=== PATIENT | female | born 1995 | race Caucasian/White ===

== ENCOUNTER 2017-08-20 09:19 | Emergency (ER) | payer OTHER, SELFPAY ==
[2017-08-20] MEDS: METOCLOPRAMIDE INJ 10MG/2ML VIAL (J2765) IV (11:15)
[2017-08-20] MEDS: NS 1,000 ML IV (11:15)
[2017-08-20 11:33] LABS: BASO % 0.1 % (0.0-1.0); HEMATOCRIT 46.9 % (36.0-47.0); HEMOGLOBIN 15.9 g/dl (12.0-15.5); IMMATURE GRANULOCYTE % 0.5 % (0-3.0); LYMPH # 1.4 10^3/uL (1.5-6.5); LYMPH % 8.2 % (24.0-44.0); MEAN CORPUSCULAR HGB CONC 33.9 g/dl (32.0-36.5); MEAN CORPUSCULAR VOLUME 85.6 fl (80.0-96.0); MONO # 0.4 10^3/uL (0.0-0.8); MONO % 2.1 % (0.0-5.0); NEUTROPHILS % 89.1 % (36.0-66.0); PLATELET COUNT, AUTOMATED 299 10^3/uL (150-450); RED BLOOD COUNT 5.48 10^6/uL (4.00-5.40); RED CELL DISTRIBUTION WIDTH 12.3 % (11.5-14.5); WHITE BLOOD COUNT 16.9 10^3/uL (4.0-10.0)
[2017-08-20 12:05] LABS: AMORPHOUS SEDIMENT RFX SMALL (NEGATIVE); KETONE, URINE AUTO RFX 2+ mg/dL (NEGATIVE); LEUKOCYTE ESTERASE UR AUTO RFX NEGATIVE (NEGATIVE); MUCUS, URINE RFX MODERATE (NEGATIVE); NITRITE, URINE AUTO RFX NEGATIVE (NEGATIVE); RBC, URINE AUTO RFX 2 /HPF (0-3); SPECIFIC GRAVITY UR AUTO RFX 1.035 (1.002-1.035); SQUAM EPITHELIAL CELL UR AURFX 15 /HPF (0-6); WBC, URINE AUTO RFX 2 /HPF (0-3)
[2017-08-20 12:11] LABS: ALBUMIN 4.3 GM/DL (3.2-5.2); ALBUMIN/GLOBULIN RATIO 0.93 (1.00-1.93); ALKALINE PHOSPHATASE 65 U/L (45-117); ALT/SGPT 48 U/L (12-78); ANION GAP 11 MEQ/L (8-16); AST/SGOT 17 U/L (7-37); BILIRUBIN,DIRECT 0.1 MG/DL (0.0-0.2); BILIRUBIN,TOTAL 0.5 MG/DL (0.2-1.0); BLOOD UREA NITROGEN 11 MG/DL (7-18); CALCIUM LEVEL 9.6 MG/DL (8.5-10.1); CARBON DIOXIDE LEVEL 27 MEQ/L (21-32); CHLORIDE LEVEL 101 MEQ/L (98-107); CREATININE FOR GFR 0.83 MG/DL (0.55-1.30); GLOMERULAR FILTRATION RATE > 60.0 (>60); GLUCOSE, FASTING 112 MG/DL (70-100); LIPASE 71 U/L (73-393); POTASSIUM SERUM 3.7 MEQ/L (3.5-5.1); SODIUM LEVEL 139 MEQ/L (136-145); TOTAL PROTEIN 8.9 GM/DL (6.4-8.2)
== END 2017-08-20 13:17 | disposition home or self-care (01) ==
LOC: M ED 09:19
DX: O21.0 Mild hyperemesis gravidarum (principal); O99.280 Endocrine, nutritional and metabolic diseases complicating pregnancy, unspecified trimester; E86.0 Dehydration; Z3A.01 Less than 8 weeks gestation of pregnancy; Z88.0 Allergy status to penicillin
CPT/HCPCS: J2765

== ENCOUNTER 2017-08-23 18:03 | Observation (INO) | payer SELFPAY, BC, OTHER ==
[2017-08-23] MEDS: ONDANSETRON 4MG/2ML VIAL (J2405) IV (19:15)
[2017-08-23] MEDS: NS 1,000 ML IV ×2 (19:15→20:45)
[2017-08-23 19:21] LABS: BASO % 0.2 % (0.0-1.0); EOS % 0.1 % (0.0-3.0); HEMATOCRIT 46.2 % (36.0-47.0); HEMOGLOBIN 16.3 g/dl (12.0-15.5); IMMATURE GRANULOCYTE % 0.4 % (0-3.0); LYMPH # 2.6 10^3/uL (1.5-6.5); LYMPH % 16.2 % (24.0-44.0); MEAN CORPUSCULAR HEMOGLOBIN 29.6 pg (27.0-33.0); MEAN CORPUSCULAR HGB CONC 35.3 g/dl (32.0-36.5); MONO # 0.9 10^3/uL (0.0-0.8); MONO % 5.6 % (0.0-5.0); NEUTROPHILS # 12.2 10^3/uL (1.8-7.7); NEUTROPHILS % 77.5 % (36.0-66.0); PLATELET COUNT, AUTOMATED 319 10^3/uL (150-450); RED CELL DISTRIBUTION WIDTH 12.2 % (11.5-14.5); WHITE BLOOD COUNT 15.8 10^3/uL (4.0-10.0)
[2017-08-23 19:30] LABS: KETONE, URINE AUTO RFX 2+ mg/dL (NEGATIVE); LEUKOCYTE ESTERASE UR AUTO RFX NEGATIVE (NEGATIVE); MUCUS, URINE RFX MODERATE (NEGATIVE); NITRITE, URINE AUTO RFX NEGATIVE (NEGATIVE); RBC, URINE AUTO RFX 4 /HPF (0-3); SQUAM EPITHELIAL CELL UR AURFX 12 /HPF (0-6); WBC, URINE AUTO RFX 3 /HPF (0-3)
[2017-08-23 19:51] LABS: ALKALINE PHOSPHATASE 67 U/L (45-117); ALT/SGPT 262 U/L (12-78); ANION GAP 8 MEQ/L (8-16); AST/SGOT 127 U/L (7-37); BILIRUBIN,DIRECT 0.7 MG/DL (0.0-0.2); BILIRUBIN,TOTAL 1.5 MG/DL (0.2-1.0); BLOOD UREA NITROGEN 9 MG/DL (7-18); CALCIUM LEVEL 9.5 MG/DL (8.5-10.1); CARBON DIOXIDE LEVEL 35 MEQ/L (21-32); CHLORIDE LEVEL 93 MEQ/L (98-107); GLOMERULAR FILTRATION RATE > 60.0 (>60); GLUCOSE, FASTING 103 MG/DL (70-100); LIPASE 74 U/L (73-393); POTASSIUM SERUM 3.5 MEQ/L (3.5-5.1); SODIUM LEVEL 136 MEQ/L (136-145)
[2017-08-24] MEDS: KCL 20MEQ IN D5/0.45NS 1000ML 1,000 ML IV ×4 (00:24→23:19)
[2017-08-24] MEDS: ONDANSETRON 4MG/2ML VIAL (J2405) IV ×3 (00:24→13:59)
[2017-08-24] MEDS: PROMETHAZINE INJ 25 MG/ML VIAL (J2550) IV ×2 (04:43→11:33)
[2017-08-24 06:41] LABS: HEMATOCRIT 41.2 % (36.0-47.0); HEMOGLOBIN 14.4 g/dl (12.0-15.5); MEAN CORPUSCULAR HEMOGLOBIN 29.3 pg (27.0-33.0); MEAN CORPUSCULAR VOLUME 83.7 fl (80.0-96.0); PLATELET COUNT, AUTOMATED 248 10^3/uL (150-450); RED BLOOD COUNT 4.92 10^6/uL (4.00-5.40); RED CELL DISTRIBUTION WIDTH 12.2 % (11.5-14.5); WHITE BLOOD COUNT 11.8 10^3/uL (4.0-10.0)
[2017-08-24 07:00] LABS: ALBUMIN 3.3 GM/DL (3.2-5.2); ALBUMIN/GLOBULIN RATIO 1.06 (1.00-1.93); ALKALINE PHOSPHATASE 53 U/L (45-117); ALT/SGPT 250 U/L (12-78); ANION GAP 6 MEQ/L (8-16); AST/SGOT 107 U/L (7-37); BILIRUBIN,TOTAL 1.1 MG/DL (0.2-1.0); BLOOD UREA NITROGEN 6 MG/DL (7-18); CALCIUM LEVEL 8.3 MG/DL (8.5-10.1); CARBON DIOXIDE LEVEL 32 MEQ/L (21-32); CHLORIDE LEVEL 100 MEQ/L (98-107); CREATININE FOR GFR 0.56 MG/DL (0.55-1.30); GLOMERULAR FILTRATION RATE > 60.0 (>60); GLUCOSE, FASTING 97 MG/DL (70-100); POTASSIUM SERUM 3.1 MEQ/L (3.5-5.1); SODIUM LEVEL 138 MEQ/L (136-145); TOTAL PROTEIN 6.4 GM/DL (6.4-8.2)
[2017-08-24] MEDS: PRENATAL VITAMINS CHEWABLE TABLET PO (10:42)
[2017-08-24] MEDS: ONDANSETRON 4 MG ORAL DISINTEGRATING TAB (Q0162 PER 1MG) PO (19:58)
[2017-08-24] MEDS: PROMETHAZINE 25 MG SUPP PR (23:19)
[2017-08-25] MEDS: KCL 20MEQ IN D5/0.45NS 1000ML 1,000 ML IV (06:57)
[2017-08-25] MEDS: ONDANSETRON 4 MG ORAL DISINTEGRATING TAB (Q0162 PER 1MG) PO (07:01)
[2017-08-25] MEDS: PRENATAL VITAMINS CHEWABLE TABLET PO (08:47)
== END 2017-08-25 11:30 | disposition home or self-care (01) ==
LOC: M ED 18:03 → M ED INP 22:00 → M PED 23:40
DX: O21.1 Hyperemesis gravidarum with metabolic disturbance (principal); O99.611 Diseases of the digestive system complicating pregnancy, first trimester; K80.20 Calculus of gallbladder without cholecystitis without obstruction; R79.89 Other specified abnormal findings of blood chemistry; Z88.0 Allergy status to penicillin; Z3A.08 8 weeks gestation of pregnancy
CPT/HCPCS: J2405

== ENCOUNTER 2017-09-30 10:12 | Emergency (ER) | payer BC, SELFPAY ==
[2017-09-30] MEDS: NS 1,000 ML IV (11:15)
[2017-09-30] MEDS: ONDANSETRON 4MG/2ML VIAL (J2405) IV (11:15)
[2017-09-30 11:32] LABS: BASO % 0.1 % (0.0-1.0); HEMATOCRIT 42.9 % (36.0-47.0); HEMOGLOBIN 15.1 g/dl (12.0-15.5); IMMATURE GRANULOCYTE % 0.4 % (0-3.0); LYMPH # 1.5 10^3/uL (1.5-6.5); LYMPH % 8.7 % (24.0-44.0); MEAN CORPUSCULAR HEMOGLOBIN 29.7 pg (27.0-33.0); MEAN CORPUSCULAR HGB CONC 35.2 g/dl (32.0-36.5); MEAN CORPUSCULAR VOLUME 84.4 fl (80.0-96.0); MONO # 0.5 10^3/uL (0.0-0.8); MONO % 2.7 % (0.0-5.0); NEUTROPHILS % 88.1 % (36.0-66.0); PLATELET COUNT, AUTOMATED 291 10^3/uL (150-450); RED BLOOD COUNT 5.08 10^6/uL (4.00-5.40); RED CELL DISTRIBUTION WIDTH 12.6 % (11.5-14.5); WHITE BLOOD COUNT 17.1 10^3/uL (4.0-10.0)
[2017-09-30 11:55] LABS: ALBUMIN 3.6 GM/DL (3.2-5.2); ALKALINE PHOSPHATASE 65 U/L (45-117); ALT/SGPT 88 U/L (12-78); ANION GAP 9 MEQ/L (8-16); AST/SGOT 53 U/L (7-37); BILIRUBIN,DIRECT 0.3 MG/DL (0.0-0.2); BILIRUBIN,TOTAL 0.7 MG/DL (0.2-1.0); BLOOD UREA NITROGEN 7 MG/DL (7-18); CALCIUM LEVEL 9.2 MG/DL (8.5-10.1); CARBON DIOXIDE LEVEL 29 MEQ/L (21-32); CHLORIDE LEVEL 98 MEQ/L (98-107); CREATININE FOR GFR 0.68 MG/DL (0.55-1.30); GLOMERULAR FILTRATION RATE > 60.0 (>60); GLUCOSE, FASTING 118 MG/DL (70-100); HCG, SERUM QUANTITATIVE 49673 MIU/ML; LIPASE 80 U/L (73-393); POTASSIUM SERUM 3.1 MEQ/L (3.5-5.1); SODIUM LEVEL 136 MEQ/L (136-145); TOTAL PROTEIN 8.1 GM/DL (6.4-8.2)
[2017-09-30 12:37] LABS: KETONE, URINE AUTO RFX 2+ mg/dL (NEGATIVE); LEUKOCYTE ESTERASE UR AUTO RFX NEGATIVE (NEGATIVE); MUCUS, URINE RFX LARGE (NEGATIVE); NITRITE, URINE AUTO RFX NEGATIVE (NEGATIVE); RBC, URINE AUTO RFX 2 /HPF (0-3); SPECIFIC GRAVITY UR AUTO RFX 1.029 (1.002-1.035); SQUAM EPITHELIAL CELL UR AURFX 10 /HPF (0-6); WBC, URINE AUTO RFX 3 /HPF (0-3)
[2017-09-30] MEDS: POTASSIUM CHLORIDE 10 MEQ SR TABLET PO (13:10)
== END 2017-09-30 13:14 | disposition home or self-care (01) ==
LOC: M ED 10:12
DX: O21.0 Mild hyperemesis gravidarum (principal); O99.281 Endocrine, nutritional and metabolic diseases complicating pregnancy, first trimester; E87.6 Hypokalemia; Z3A.13 13 weeks gestation of pregnancy; Z87.09 Personal history of other diseases of the respiratory system; Z88.0 Allergy status to penicillin
CPT/HCPCS: J2405

== ENCOUNTER → 2017-10-17 | Outpatient (CLI) | payer BC ==
[2017-10-17 18:54] LABS: BASO % 0.3 % (0.0-1.0); EOS # 0.1 10^3/uL (0.0-0.50); EOS % 0.3 % (0.0-3.0); HEMATOCRIT 37.5 % (36.0-47.0); HEMOGLOBIN 12.9 g/dl (12.0-15.5); IMMATURE GRANULOCYTE % 0.5 % (0-3.0); LYMPH % 20.6 % (24.0-44.0); MEAN CORPUSCULAR HEMOGLOBIN 29.9 pg (27.0-33.0); MEAN CORPUSCULAR HGB CONC 34.4 g/dl (32.0-36.5); MEAN CORPUSCULAR VOLUME 86.8 fl (80.0-96.0); MONO # 0.8 10^3/uL (0.0-0.8); MONO % 5.4 % (0.0-5.0); NEUTROPHILS # 10.6 10^3/uL (1.8-7.7); NEUTROPHILS % 72.9 % (36.0-66.0); PLATELET COUNT, AUTOMATED 230 10^3/uL (150-450); RED BLOOD COUNT 4.32 10^6/uL (4.00-5.40); WHITE BLOOD COUNT 14.5 10^3/uL (4.0-10.0)
[2017-10-17 23:20] LABS: CHLAMYDIA DNA AMPLIFICATION NEGATIVE (NEGATIVE); GC DNA AMPLIFICATION NEGATIVE (NEGATIVE)
[2017-10-19 09:34] LABS: RUBELLA IgG QUALITATIVE IMMUNE (IMMUNE)
[2017-10-19 09:46] LABS: HBsAg Prenatal NEGATIVE (NEGATIVE)
[2017-10-19 10:03] LABS: HEPATITIS C VIRUS ABY INDEX 0.1 INDEX (<0.8)
[2017-10-19 10:04] LABS: HIV 1&2 SCREEN CENTAUR NEGATIVE (NEGATIVE)
== END ==
LOC: M SMT 14:02
DX: Z34.81 Encounter for supervision of other normal pregnancy, first trimester (principal); Z3A.11 11 weeks gestation of pregnancy
CPT/HCPCS: 86762

== ENCOUNTER → 2017-11-14 | Outpatient (CLI) | payer BC | LOC: M RAD 17:16 | DX: Z34.82 Encounter for supervision of other normal pregnancy, second trimester (principal) | CPT/HCPCS: 76811 ==

== ENCOUNTER → 2017-11-19 | Outpatient (REF) | payer BC | LOC: M LAB REF 16:57 | DX: Z34.82 Encounter for supervision of other normal pregnancy, second trimester (principal) | CPT/HCPCS: 87086 ==

== ENCOUNTER → 2017-12-28 | Outpatient (CLI) | payer BC | LOC: M RAD 09:36 | DX: Z36.89 Encounter for other specified antenatal screening (principal); O35.8XX1 Maternal care for other (suspected) fetal abnormality and damage, fetus 1; Z3A.25 25 weeks gestation of pregnancy | CPT/HCPCS: 76816 ==

== ENCOUNTER → 2018-01-09 | Outpatient (CLI) | payer BC ==
[2018-01-09 18:14] LABS: HEMATOCRIT 36.5 % (36.0-47.0); HEMOGLOBIN 12.2 g/dl (12.0-15.5); MEAN CORPUSCULAR HEMOGLOBIN 29.9 pg (27.0-33.0); MEAN CORPUSCULAR HGB CONC 33.4 g/dl (32.0-36.5); MEAN CORPUSCULAR VOLUME 89.5 fl (80.0-96.0); PLATELET COUNT, AUTOMATED 218 10^3/uL (150-450); RED BLOOD COUNT 4.08 10^6/uL (4.00-5.40); RED CELL DISTRIBUTION WIDTH 11.9 % (11.5-14.5); WHITE BLOOD COUNT 13.5 10^3/uL (4.0-10.0)
[2018-01-09 18:33] LABS: GLUCOSE CHALLENGE TEST 1 HOUR 139 MG/DL (LESS THAN 140)
[2018-01-10 09:51] LABS: TYPE AND SCREEN 1 1
== END ==
LOC: M SMT 13:52
DX: Z34.82 Encounter for supervision of other normal pregnancy, second trimester (principal); Z36.89 Encounter for other specified antenatal screening
CPT/HCPCS: 82950

== ENCOUNTER → 2018-01-25 | Outpatient (CLI) | payer BC | LOC: M RAD 13:42 | DX: Z36.89 Encounter for other specified antenatal screening (principal); Z68.31 Body mass index [BMI] 31.0-31.9, adult | CPT/HCPCS: 76816 ==

== ENCOUNTER → 2018-02-25 | Outpatient (CLI) | payer BC ==
[2018-02-25 07:51] LABS: GLUCOSE, FASTING 88 MG/DL (LESS THAN 95)
[2018-02-25 09:02] LABS: 1 HR GLUCOSE 160 MG/DL (LESS THAN 180)
[2018-02-25 09:44] LABS: 2 HR GLUCOSE 152 MG/DL (LESS THAN 155)
[2018-02-25 11:16] LABS: 3 HR GLUCOSE 67 MG/DL (LESS THAN 140)
== END ==
LOC: M LAB 06:53
DX: Z34.82 Encounter for supervision of other normal pregnancy, second trimester (principal); Z3A.00 Weeks of gestation of pregnancy not specified
CPT/HCPCS: 82951

== ENCOUNTER → 2018-03-18 | Outpatient (REF) | payer BC | LOC: M LAB REF 17:30 | DX: Z34.83 Encounter for supervision of other normal pregnancy, third trimester (principal) | CPT/HCPCS: 87081 ==

== ENCOUNTER 2018-04-10 13:08 | Inpatient (IN) | payer BC ==
[2018-04-10] MEDS: PRENATAL VITAMINS CHEWABLE TABLET PO (09:00)
[2018-04-10] MEDS ORDERED: LR 1,000 ML IV (13:35)
[2018-04-10] MEDS: LACTATED RINGER'S 1000 ML IV (13:35)
[2018-04-10] MEDS ORDERED: OXYTOCIN 30 UNITS IN 0.9% NaCl 500ML IV BAG (J2590) As Ordered (13:54)
[2018-04-10 14:00] LABS: HEMOGLOBIN 12.5 g/dl (12.0-15.5); MEAN CORPUSCULAR HEMOGLOBIN 27.8 pg (27.0-33.0); MEAN CORPUSCULAR HGB CONC 32.9 g/dl (32.0-36.5); MEAN CORPUSCULAR VOLUME 84.4 fl (80.0-96.0); PLATELET COUNT, AUTOMATED 151 10^3/uL (150-450); RED CELL DISTRIBUTION WIDTH 13.3 % (11.5-14.5); WHITE BLOOD COUNT 14.6 10^3/uL (4.0-10.0)
[2018-04-10] MEDS: OXYTOCIN DRIP 30 UNITS in APPROPRIATE DILUENT 1 EA IV (14:08)
[2018-04-10] MEDS: miSOPROStol 200 MCG TAB (S0191) PR (14:11)
[2018-04-10] MEDS ORDERED: DOCUSATE SODIUM 100 MG CAP PO (14:45)
[2018-04-10] MEDS ORDERED: MOM 30ML SUSPENSION UDC PO (14:45)
[2018-04-10] MEDS ORDERED: ANUSOL HC CREAM 30GM TOP (14:45)
[2018-04-10] MEDS ORDERED: DIBUCAINE 1% OINTMENT 30GM TOP (14:45)
[2018-04-10] MEDS: METHYLERGONOVINE MALEATE 0.2 MG TAB PO ×2 (15:10→21:05)
[2018-04-10] MEDS: IBUPROFEN 800 MG TAB PO ×2 (15:37→21:06)
[2018-04-10] MEDS: ACETAMINOPHEN 500 MG TAB PO (17:19)
[2018-04-11] MEDS: METHYLERGONOVINE MALEATE 0.2 MG TAB PO ×2 (03:00→08:48)
[2018-04-11] MEDS: ACETAMINOPHEN 500 MG TAB PO ×2 (03:00→14:26)
[2018-04-11] MEDS: PRENATAL VITAMINS CHEWABLE TABLET PO (08:48)
[2018-04-11] MEDS ORDERED: METHYLERGONOVINE MALEATE 0.2 MG TAB PO (15:00)
[2018-04-11 16:07] LABS: FETAL SCREEN PROF. 1 1
[2018-04-11] MEDS: RHOGAM 300 MCG (1500 IU) INJ (J2790) IM (16:24)
[2018-04-12] MEDS: ACETAMINOPHEN 500 MG TAB PO (02:16)
[2018-04-12] MEDS: MEASLES,MUMPS,RUBELLA VACCINE INJ (MMR-II) (90707) SC (07:11)
[2018-04-12] MEDS: PRENATAL VITAMINS CHEWABLE TABLET PO (07:50)
[2018-04-12] MEDS: IBUPROFEN 800 MG TAB PO (07:50)
== END 2018-04-12 11:45 | disposition home or self-care (01) | DRG 560 ==
LOC: M LDI 13:08 → M OBS 16:38
PROVIDERS: Advanced Practice Midwife
PROC: 10E0XZZ Delivery of Products of Conception, External Approach (ICD-10-PCS; principal; 2018-04-10)
PROC: 10907ZC Drainage of Amniotic Fluid, Therapeutic from Products of Conception, Via Natural or Artificial Opening (ICD-10-PCS; 2018-04-10)
DX: O48.0 Post-term pregnancy (principal); Z37.0 Single live birth; Z3A.40 40 weeks gestation of pregnancy